=== PATIENT | female | born 1965 | race Caucasian/White ===

== ENCOUNTER 2019-01-18 07:27 | Day surgery (SDC) | payer OTHER | END 2019-01-18 09:50 | disposition home or self-care (01) | LOC: JASU-ENDO 07:27 ==

== ENCOUNTER 2021-07-01 12:39 | Emergency (ER) | payer OTHER ==
[2021-07-01 13:04] VITALS: BP 129/79; PULSE 82; TEMP 98.2; BMI 24.2
== END 2021-07-01 14:50 | disposition home or self-care (01) ==
LOC: FER 12:39
DX: S62.306A Unspecified fracture of fifth metacarpal bone, right hand, initial encounter for closed fracture (principal); W19.XXXA Unspecified fall, initial encounter; Y92.9 Unspecified place or not applicable
CPT/HCPCS: 73130-TC-RT-FY; 99284-25

== ENCOUNTER 2022-07-27 04:20 | Day surgery (SDC) | payer OTHER ==
[2022-07-23 11:53] VITALS: BMI 23.7
[2022-07-27] MEDS ORDERED: MIDAZOLAM HCL 2 MG/2 ML SINGLE DOSE VIAL ONE (09:15)
[2022-07-27 09:51] VITALS: TEMP 97.3
[2022-07-27 10:42] VITALS: BP 105/64; PULSE 84; RESP 18
== END 2022-07-27 11:13 | disposition home or self-care (01) ==
LOC: JASU-ENDO 04:20
PROVIDERS: ATTEND Internal Medicine Gastroenterology
PROC: 0DJD8ZZ Inspection of Lower Intestinal Tract, Via Natural or Artificial Opening Endoscopic (ICD-10-PCS; principal; 2022-07-27 10:00)
DX: Z12.11 Encounter for screening for malignant neoplasm of colon (principal); K57.30 Diverticulosis of large intestine without perforation or abscess without bleeding; K64.8 Other hemorrhoids; Z86.010 Personal history of colon polyps